=== PATIENT | female | born 1980 | race Native Hawaiian/Other Pacific Islander ===

== ENCOUNTER 2021-11-11 09:30 | Outpatient (CLI) | payer OTHER | END 2021-11-11 21:10 | disposition home or self-care (01) | LOC: MAMMO 09:30 | PROVIDERS: ATTEND Nurse Practitioner Family | DX: Z12.31 Encounter for screening mammogram for malignant neoplasm of breast (principal) ==

== ENCOUNTER 2021-12-02 12:48 | Outpatient (CLI) | payer OTHER | END 2021-12-02 20:01 | disposition home or self-care (01) | LOC: MAMMO 12:48 | PROVIDERS: ATTEND Nurse Practitioner Family | DX: R92.8 Other abnormal and inconclusive findings on diagnostic imaging of breast (principal) ==